=== PATIENT | female | born 1970 | race Caucasian/White ===

== ENCOUNTER 2019-01-07 09:02 | Day surgery (SDC) | payer BC ==
[~2019-01-07 09:02] MED LIST: CEFAZOLIN 1 Gram 1 GM/50 ML BAG IVPB ONE; CEFAZOLIN 2 Gram 2 GM/50 ML BAG IVPB ONE
[2019-01-07] MEDS ORDERED: LIDOCAINE 2% MDV (20MG/ML) 20ML VIAL IV ONE (09:03)
[2019-01-07] MEDS ORDERED: DEXAMETHASONE 4 MG/ML 1ML VIAL IVP ONE (09:03)
[2019-01-07] MEDS ORDERED: PROPOFOL 10 MG/ML VIAL IV ONE (09:03)
[2019-01-07] MEDS ORDERED: MORPHINE SULFATE PF 10MG/10ML VIAL IV ONE (09:03)
[2019-01-07] MEDS ORDERED: ONDANSETRON HCL IV 4 MG/2 ML VIAL IVP ONE (09:03)
[2019-01-07] MEDS ORDERED: BUPIVACAINE LIPOSOME/PF 133MG/10ML VIAL IV ONE (09:03)
[2019-01-07] MEDS ORDERED: MIDAZOLAM HCL 2MG/2ML VIAL IV ONE (09:03)
[2019-01-07] MEDS ORDERED: GLYCOPYRROLATE 0.2 MG/ML ML IV ONE (09:03)
[2019-01-07] MEDS ORDERED: METHYLPREDNISOLONE 40MG/VIAL IM ONE (09:03)
[2019-01-07] MEDS ORDERED: BUPIVACAINE 0.5% W/EPI MPF 30 ML VIAL IVP ONE (09:03)
[2019-01-07] MEDS ORDERED: FENTANYL PF 100MCG/2ML VIAL IV ONE (09:03)
[2019-01-07] MEDS ORDERED: EPHEDRINE SULFATE 50 MG/ML ML IV ONE (09:03)
[2019-01-07] MEDS ORDERED: SEVOFLURANE 250 ML INH ONE (09:03)
[2019-01-07] MEDS ORDERED: RINGERS SOLUTION,LACTATED 850 ML IV ONE (12:47)
[2019-01-07] MEDS ORDERED: KETOROLAC 30 MG/ML VIAL IVP ONE (13:08)
--- NOTE | 2019-01-08 08:50 | Operative Note ---
DATE OF SURGERY: 01/07/2019 PREOPERATIVE DIAGNOSIS: Severe impingement right shoulder. POSTOPERATIVE DIAGNOSES: 1. Small chronic tear of the rotator cuff. 2. Diffuse labral tear. 3. Profound external impingement right shoulder. 4. Arthrosis right distal clavicle. OPERATION: 1. Repair of a chronically torn rotator cuff tear, open. 2. Right shoulder arthroscopy with intraarticular debridement. 3. Right shoulder open acromioplasty, CA ligament resection, subacromial bursectomy. 4. Right shoulder distal clavicle resection. Staff Surgeon: Sean Wallis MD Anesthesia: General. Preparation: Chloraprep. Individual Considerations: None. PROCEDURE: The patient was taken to the operating room, placed supine on the operating room table. She had a successful induction of a general anesthetic. She was then placed in a semi-seated beach chair position. Her right arm and shoulder were prepped and draped in the usual fashion. Examination under anesthesia showed no instability in full motion. The patient had a posterior portal identified for arthroscopy. Skin was infiltrated with 0.5% Marcaine with epinephrine prior. An 18-gauge spinal needle was easily placed in the joint, and the joint was inflated with normal saline. A stab wound was made, and a blunt-tipped trocar for the scope was placed in the joint. The joint was again inflated with normal saline. An anterior accessory portal was then made just inferior to the intact long head of the biceps tendon in a retrograde fashion with a Wissinger darryl, and the joint was irrigated out. The patient had a normal glenohumeral joint. She had fraying of the labrum especially posteriorly. This was all debrided back with a shaver. The long head was intact. Glenohumeral joint was intact. Subscap was normal. No loose bodies or significant synovitis seen in the inferior gutter and pouch. Underneath the supraspinatus, there was evidence of at least a high-grade partial tear with unstable areas which were debrided with a shaver. The joint was irrigated out and portals were closed with itz. The patient had an anterior approach to the subacromial space and distal clavicle. Skin was again infiltrated with 0.5% Marcaine with epinephrine prior. Sharp dissection carried down through skin and subcutaneous tissues. Small veins were coagulated with a Bovie. An anterior deltoid interval was developed. Care was taken not to split the deltoid more than about 4 cm distal to the anterior tip of the acromion to prevent injury to the axillary nerve. Once in the subacromial space, she had a very tight space, diffuse bursitis. The deltoid was then taken subperiosteally off the anterior aspect of the acromion, over the top of the intact CA ligament, and off the anterior aspect of the highly degenerated distal clavicle. CA ligament was resected with a Bovie. Distal clavicle was resected an oscillating saw taking about 1 cm. The patient had downsloping acromion with spur, and an anterior acromioplasty was performed taking about 6-7 mm tapering towards posteromedially to include the spurs at the AC joint. The undersurface was then smoothed with a rasp. A very thickened bursa was debrided out. I now had a good look at the rotator cuff where I saw underneath with arthroscopy what appeared to be a rotator cuff tear basically hanging on by a thread just lateral to the long head measuring about 1 cm. I debrided this back to good bleeding tendon, took a tamera and roughed up the bone with a small trough and then brought this end of the freshened tendon back into the trough with a #1 Ethibond suture in a retention fashion going through the bone distally. This essentially restored an anatomic function. I put the shoulder through a full range of motion to ensure no further impingement. Distal clavicle and AC joint were infiltrated with 0.5% Marcaine with epinephrine. After irrigation, the deltoid was reattached to the remaining acromion with multiple interrupted #2 Vicryl going directly through the bony acromion. The periosteal cuff of the distal clavicle was closed with running #2 Vicryl. Anterior deltoid interval was closed with running #1 Vicryl. Subcu was closed in layers with 2-0 plus Vicryl and skin was closed with 3-0 quill. I mixed 10 mg of morphine with 10 mL of 0.5% Marcaine with epinephrine along with 10 mL of Exparel and mixed again with 40 mg of Depo-Medrol, injected it into the subacromial space through a sterile 18-gauge needle. A sterile bulky compressive dressing and sling were applied. The patient tolerated the procedure well. Needle and sponge counts were correct. Estimated blood loss was minimal. She was taken back to recovery in good condition. There were no complications. YOSEF
== END 2019-01-07 14:05 | disposition home or self-care (01) ==
LOC: SUR 09:02
PROVIDERS: ATTEND Orthopaedic Surgery
DX: M75.101 Unspecified rotator cuff tear or rupture of right shoulder, not specified as traumatic (principal); S43.431A Superior glenoid labrum lesion of right shoulder, initial encounter; M19.011 Primary osteoarthritis, right shoulder; I10 Essential (primary) hypertension; E78.00 Pure hypercholesterolemia, unspecified; K21.9 Gastro-esophageal reflux disease without esophagitis
CPT/HCPCS: C9290; J1030; J2405; J7120